=== PATIENT | male | born 1970 | race American Indian/Alaskan Native ===

== ENCOUNTER 2018-08-03 21:25 | Emergency (ER) | payer SELFPAY ==
[2018-08-03 21:37] VITALS: BP 136/79
--- NOTE | 2018-08-03 21:40 | Emergency Department Report ---
Chief Complaint: Headache Stated Complaint: EEVATED BLOOD PRESSURE, BLISTER LEFT FOOT Time Seen by Provider: 08/03/18 21:39 - HPI History of Present Illness: co headache no neuro def has been for several days co l toe pain for several weeks no trauma just wont heal pmh none rx none pcp none psh none mse completed - Exam Vital Signs: Vital Signs 08/03/18 21:32 Temperature 97.7 F Pulse Rate 55 L Respiratory 12 Rate Blood Pressure 136/79 O2 Sat by Pulse 99 Oximetry MSE screening note: Focused history and physical exam performed. Due to findings the following was ordered: ED Disposition for MSE Condition: Stable
[2018-08-03] MEDS ORDERED: TORADOL IM ONE (23:22)
--- NOTE | 2018-08-03 23:26 | Emergency Department Report ---
ED Headache HPI - General Chief Complaint: Headache Stated Complaint: EEVATED BLOOD PRESSURE, BLISTER LEFT FOOT Time Seen by Provider: 08/03/18 21:39 - History of Present Illness Initial Comments: 48-year-old -N[place]alese male presents to the emergency room for headache 1 week and the swollen left pinky toe on his left foot 2 weeks. Patient reports that his headache is constant and is located in the frontal is achy denies any nausea no vomiting or photophobia. Patient has no new weaknesses. Patient reports his never had headaches. He's only taken Tylenol last dose this morning. He has not seen a doctor in years. He has no past medical history currently takes no medications on a daily basis and has no known drug allergies. Timing/Duration: 1 week Quality: severe, achy Head Injury Location: frontal Recent Head Trauma: no recent headache/trauma Associated Symptoms: denies symptoms Allergies/Adverse Reactions: Allergies No Known Allergies Allergy (Unverified 08/03/18 21:30) Home Medications: Ambulatory Orders Ibuprofen [Motrin 800 MG tab] 800 mg PO Q8HR PRN #15 tablet 08/03/18 ED Review of Systems ROS: Stated complaint: EEVATED BLOOD PRESSURE, BLISTER LEFT FOOT Other details as noted in HPI Gastrointestinal: denies: nausea, vomiting Skin: other (left pinky toe swelling) Neurological: headache. denies: weakness, numbness, paresthesias, vertigo Psychiatric: denies: anxiety, depression ED Past Medical Hx - Past Medical History Previous Medical History?: No - Surgical History Past Surgical History?: No - Social History Smoking Status: Never Smoker Substance Use Type: Alcohol - Medications Home Medications: Home Medications Medication Instructions Recorded Confirmed Last Taken Type Ibuprofen [Motrin 800 MG tab] 800 mg PO Q8HR PRN #15 tablet 08/03/18 Unknown Rx ED Physical Exam - General Limitations: No Limitations General appearance: alert, in no apparent distress - Head Head exam: Present: atraumatic, normocephalic - Eye Eye exam: Present: normal appearance - ENT ENT exam: Present: mucous membranes moist - Neck Neck exam: Present: normal inspection, full ROM. Absent: tenderness, lymphadenopathy - Respiratory Respiratory exam: Present: normal lung sounds bilaterally. Absent: respiratory distress - Cardiovascular Cardiovascular Exam: Present: regular rate, normal rhythm. Absent: systolic murmur, diastolic murmur, rubs, gallop - GI/Abdominal GI/Abdominal exam: Present: soft, normal bowel sounds - Back Exam Back exam: Present: normal inspection, full ROM - Neurological Exam Neurological exam: Present: alert, oriented X3 - Psychiatric Psychiatric exam: Present: normal affect, normal mood - Expanded Skin Exam Expanded Type of lesion: Present: abrasion Distribution of rash: LLE ED Course Vital Signs 08/03/18 21:32 Temperature 97.7 F Pulse Rate 55 L Respiratory 12 Rate Blood Pressure 136/79 O2 Sat by Pulse 99 Oximetry ED Medical Decision Making - Medical Decision Making Recent has been evaluated by this provider in [facility]. Patient was given a shot of Toradol 30 mg IM for pain management. Discussed the patient he can take [id number] Neosporin or triple antibiotic to his left toe he complains of Band-Aid on it so we'll prevent it from rubbing. Critical care attestation.: If time is entered above; I have spent that time in minutes in the direct care of this critically ill patient, excluding procedure time. ED Disposition Clinical Impression: Head ache Qualifiers: Headache type: unspecified Headache chronicity pattern: acute headache Intractability: intractable Qualified Code(s): R51 - Headache Abrasion of toe of left foot Qualifiers: Encounter type: initial encounter Qualified Code(s): S90.415A - Abrasion, left lesser toe(s), initial encounter Disposition: TO HOME OR SELFCARE Is pt being admited?: No Does the pt Need Aspirin: No Condition: Stable Instructions: Acute Headache (ED) Additional Instructions: Ibuprofen for pain management. He continues Neosporin or triple antibiotic and add a Band-Aid to your toe. Keep it clean and dry. Prescriptions: Ibuprofen [Motrin 800 MG tab] 800 mg PO Q8HR PRN #15 tablet PRN Reason: Pain , Severe (7-10) Referrals: JUMA VÁSQUEZ MD [Primary Care Provider] - 3-5 Days Forms: Accompanied Note
== END 2018-08-03 23:44 | disposition home or self-care (01) ==
LOC: ED 21:25
DX: S90.415A Abrasion, left lesser toe(s), initial encounter (principal); R51 Headache; X58.XXXA Exposure to other specified factors, initial encounter; Y93.89 Activity, other specified; Y92.89 Other specified places as the place of occurrence of the external cause; Y99.8 Other external cause status
CPT/HCPCS: 96372; 99282; J1885